=== PATIENT | male | born 1990 | race African-American/Black ===

== ENCOUNTER 2017-01-23 04:35 | Emergency (ER) | payer BC ==
[~2017-01-23 04:35] MED LIST: ROBAXIN500 MG PO; TYLENOL #3 PO
== END 2017-01-23 05:35 | disposition home or self-care (01) ==
LOC: CED 04:35
DX: R07.0 Pain in throat (principal); F17.200 Nicotine dependence, unspecified, uncomplicated; Z98.890 Other specified postprocedural states; Z79.899 Other long term (current) drug therapy
CPT/HCPCS: 96372; 99283; J0561; J1100